=== PATIENT | female | born 1935 | race Two or more races ===

== ENCOUNTER 2022-05-30 07:06 | Outpatient (CLI) | payer OTHER | END 2022-05-30 07:16 | disposition home or self-care (01) | LOC: TOM 07:06 | PROVIDERS: ATTEND Internal Medicine Gastroenterology | DX: R19.5 Other fecal abnormalities (principal); K56.52 Intestinal adhesions [bands] with complete obstruction; R97.0 Elevated carcinoembryonic antigen [CEA] ==